=== PATIENT | male | born 1965 | race Caucasian/White ===

== ENCOUNTER 2018-10-26 12:58 | Inpatient (IN) ==
[2018-10-26] MEDS ORDERED: ASPIRIN PO ONE (13:22)
[2018-10-26 13:34] LABS: BASO# 0.02 X1000 (0.0-0.2); BASO% 0.5 % (0.0-0.8); EOS# 0.22 X1000 (0.0-0.7); EOS% 5.1 % (0.0-10.0); HEMATOCRIT 40.6 % (42.0-52.0); HEMOGLOBIN 14.8 g/dL (14.0-18.0); LYMPH# 1.51 X1000 (1.2-3.4); LYMPH% 34.8 % (20.5-51.1); MCH 32.8 PG (27-31); MCHC 36.5 g/dL (33-37); MONO# 0.66 X1000 (0.11-0.59); MONO% 15.2 % (1.7-9.3); MPV 9.4 FL (7.4-10.4); NEUT# 1.93 X1000 (1.4-6.5); NEUT% 44.4 % (42.2-75.2); PLT 247 X1000 (130-400); RBC 4.51 XMIL (4.7-6.1); RDW 12.6 % (11.5-14.5); WBC 4.34 X1000 (4.8-10.8)
[2018-10-26 13:40] LABS: INR 0.99; PROTIME 13.2 Seconds (11.0-16.0)
--- NOTE | 2018-10-26 13:40 | Diag Imaging Result Doc PS360 ---
EXAM: CHEST-2 VIEWS 10/26/2018 HISTORY: SOB TECHNIQUE: PA and lateral chest COMMENT: There is a large pneumothorax on the right occupying more than 50% of the volume of the right hemithorax with displacement of the mediastinum to the left. IMPRESSION: Right-sided tension pneumothorax. The findings were discussed with Hayder Crooks MD at 10/26/2018 1:37 PM. Electronically signed by Randell Ashby 10/26/2018 1:37 PM
[2018-10-26 13:41] LABS: PTT 27.1 Seconds (22.3-41.8)
[2018-10-26 13:51] LABS: AGAP 14; BUN 15 mg/dL (8-22); CHLORIDE 100 mmol/L (98-107); GLUCOSE 134 mg/dL (70-104); POTASSIUM 3.2 mmol/L (3.5-5.1); SODIUM 138 mmol/L (136-145); TCO2 24 mmol/L (25-35)
[2018-10-26 13:52] LABS: ALB/GLOB RATIO 1.8; ALBUMIN 4.4 g/dL (3.5-5.0); ALKALINE PHOSPHATASE 69 U/L (32-122); CALCIUM 9.1 mg/dL (8.8-10.2); CK PROFILE 124 U/L (24-204); COSMO 278; CREATININE 0.6 mg/dL (0.7-1.2); ESTIMATED GFR > 60; GOT 13 U/L (10-34); GPT 12 U/L (10-44); TOTAL PROTEIN 6.9 g/dL (6.3-8.3)
[2018-10-26] MEDS ORDERED: VERSED IV ONE (14:20)
--- NOTE | 2018-10-26 14:42 | EKG Report ---
Test Performed on : 10/26/2018 1:04:59 PM Test Reason : SOB Blood Pressure : / mmHG Vent. Rate : 095 BPM Atrial Rate : 095 BPM P-R Int : 124 ms QRS Dur : 096 ms QT Int : 352 ms P-R-T Axes : 081 083 100 degrees QTc Int : 442 ms Normal sinus rhythm. Right atrial enlargement Borderline ECG No previous ECGs available Unconfirmed Result
[2018-10-26] MEDS ORDERED: KLOR-CON PO ONE (16:26)
--- NOTE | 2018-10-26 16:51 | Diag Imaging Result Doc PS360 ---
EXAM: CHEST-PORTABLE INDICATION: chest tube TECHNIQUE: One view COMPARISON: 10/26/2018 FINDINGS: There has been interval placement of a right thoracostomy tube. The tip projects over the right upper lung zone medially. Since placement, there has been reexpansion of the right lung. No residual pneumothorax can be identified by plain radiograph. There is mild atelectasis at the right lung base. No new consolidation is identified. Cardiac silhouette is stable. IMPRESSION: Interval placement of right chest tube with reexpansion of the right lung and no visible residual pneumothorax by plain radiograph. Electronically signed by Ventura Blankenship 10/26/2018 4:48 PM
[2018-10-26] MEDS: ZOFRAN IV PRN (20:14)
[2018-10-26] MEDS: MORPHINE IV PRN (20:14)
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
[2018-10-26] MEDS: TYLENOL PO PRN (22:02)
[2018-10-26] MEDS ORDERED: PROTONIX IV ONE (22:25)
[2018-10-26] MEDS ORDERED: SODIUM CHLORIDE 0.9% INJ ONE (22:25)
[2018-10-26] MEDS ORDERED: G.I. COCKTAIL PO ONE (22:25)
[2018-10-26] MEDS ORDERED: XANAX PO ONE (22:27)
--- NOTE | 2018-10-27 03:38 | GENERAL SURGERY CONSULTATION ---
DATE: 10/26/2018 CHIEF COMPLAINT: Shortness of breath, right chest pain. REQUESTING PHYSICIAN: The hospitalist, emergency department physician. HISTORY OF PRESENT ILLNESS: This is a 53-year-old gentleman who has had a history of recurrent pneumothoraces, bilateral, that will require chest tubes. He has known COPD with emphysematous changes and ongoing tobacco use. This afternoon, he developed acute shortness of breath, chest pain which he recognized prior attacks, and came to the emergency department, where, he was found to have impending tension pneumothorax on the right. Chest tube was placed by Dr. Crooks in the emergency department. He is admitted to the hospitalist service. I have been consulted for chest tube management. He is hemodynamically stable currently. MEDICAL HISTORY: COPD, tobacco abuse. Otherwise, has not really had much in the way of health management. SURGICAL HISTORY: Multiple chest tubes bilaterally. No other thoracic procedures. SOCIAL HISTORY: He does smoke, currently about a half pack a day, but previously heavier than this. No current alcohol use that he admits. Has worked various jobs. FAMILY HISTORY: Reviewed, noncontributory. REVIEW OF SYSTEMS: Ten-point system review was performed and negative other than what is mentioned in HPI. PHYSICAL EXAMINATION: General: He is a thin-appearing gentleman, no acute distress. He is alert. Vital signs: He is afebrile. Pulse in the 80s, blood pressure 122/82, oxygen saturation high 90s on nasal cannula. HEENT: No scleral icterus. Neck: No cervical masses. Trachea is midline. Cardiovascular: Normal rate. Pulmonary: No increased work of breathing. He has a right-sided chest tube set to -20 suction, and does have a forced air leak when taking off of suction. Otherwise, no subcutaneous air. Abdomen: Soft, nontender. Integumentary: Skin is warm and dry. Psychiatric: Appropriate affect. Neurologic: No gross deficits. Peripheral vascular: He does have no lower extremity edema. Lymphatic: No cervical or axillary inguinal adenopathy. LABORATORY DATA: White count 4, hematocrit 40, platelets 247,000. INR 0.99. Creatinine 0.6. LFTs are normal. Films are negative. I reviewed both his pre- and post chest tube placement chest x-rays. ASSESSMENT AND PLAN: A 53-year-old gentleman with a recurrent spontaneous pneumothorax on the right. These have spanned several years. 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 We will continue his chest tube to -20 suction for now. Plan to water-seal tomorrow if his x-ray looks okay. If his air leak resolves, we will discuss removing the tube versus blebectomy and pleurodesis. I will monitor going forward. He is in no acute respiratory distress at this juncture. cc: Melba Rebolledo MD
[2018-10-27 06:17] LABS: HEMOGLOBIN 14.9 g/dL (14.0-18.0); RBC 4.59 XMIL (4.7-6.1); WBC 5.65 X1000 (4.8-10.8)
[2018-10-27 06:18] LABS: BASO# 0.01 X1000 (0.0-0.2); BASO% 0.2 % (0.0-0.8); EOS# 0.26 X1000 (0.0-0.7); EOS% 4.6 % (0.0-10.0); HEMATOCRIT 42.1 % (42.0-52.0); LYMPH# 1.52 X1000 (1.2-3.4); LYMPH% 26.9 % (20.5-51.1); MCH 32.5 PG (27-31); MCHC 35.4 g/dL (33-37); MCV 91.7 FL (81-99); MONO# 0.99 X1000 (0.11-0.59); MONO% 17.5 % (1.7-9.3); MPV 9.5 FL (7.4-10.4); NEUT# 2.87 X1000 (1.4-6.5); NEUT% 50.8 % (42.2-75.2); PLT 244 X1000 (130-400)
[2018-10-27 06:47] LABS: AGAP 10; ALB/GLOB RATIO 1.6; ALKALINE PHOSPHATASE 67 U/L (32-122); BUN 14 mg/dL (8-22); CALCIUM 8.8 mg/dL (8.8-10.2); CHLORIDE 103 mmol/L (98-107); COSMO 278; CREATININE 0.6 mg/dL (0.7-1.2); ESTIMATED GFR > 60; GLUCOSE 98 mg/dL (70-104); GOT 12 U/L (10-34); GPT 10 U/L (10-44); POTASSIUM 3.9 mmol/L (3.5-5.1); SODIUM 139 mmol/L (136-145); TCO2 26 mmol/L (25-35); TOTAL BILIRUBIN 0.77 mg/dL (0.20-1.00); TOTAL PROTEIN 6.5 g/dL (6.3-8.3)
--- NOTE | 2018-10-27 07:43 | Diag Imaging Result Doc PS360 ---
EXAM: CHEST-PORTABLE INDICATION: chest tube placement TECHNIQUE: One view COMPARISON: 10/26/2018 FINDINGS: The right chest tube is in stable position. A very small residual pneumothorax can be identified on this study at the periphery of the right lung base and at the right lung apex. There is platelike atelectasis at the right lung base that has worsened. No new consolidation is identified, otherwise. Cardiac silhouette is stable. IMPRESSION: Small residual right-sided pneumothorax and development of mild right basilar atelectasis. Electronically signed by Ventura Blankenship 10/27/2018 7:40 AM
[2018-10-27] MEDS: MORPHINE IV PRN ×2 (10:52→20:05)
--- NOTE | 2018-10-27 14:49 | PROGRESS NOTE ---
DATE: 10/27/2018 SUBJECTIVE: The patient is resting comfortably in bed. He has no complaints at this time. He has a chest tube in place in the right chest wall. OBJECTIVE: Vital Signs: Temperature 97 degrees, blood pressure 107/72, heart rate 81, respirations 22, O2 saturation 95% on room air. General: This is an elderly male, lying in bed, in no acute distress. Heart: S1, S2 normal. Regular rate and rhythm. Lungs: Equal air entry bilaterally. No wheezing. No rales. No rhonchi. Abdomen: Positive bowel sounds. Soft, nontender, nondistended. Extremities: No edema, no cyanosis. Neurologic: The patient is alert and oriented x4. LABORATORY DATA: Reviewed. IMAGING: Chest x-ray shows a small right-sided pneumothorax with atelectasis. ASSESSMENT AND PLAN: 1. Recurrent spontaneous right pneumothorax. Continue with chest tube management as directed by the general surgeon. 2. Gastrointestinal prophylaxis. Will start the patient on Protonix. 3. Deep vein thrombosis prophylaxis. Will start the patient on heparin. cc: Spring Balderas MD
--- NOTE | 2018-10-27 16:02 | GENERAL SURGERY PROGRESS NOTE ---
DATE: 10/27/2018 SUBJECTIVE: Doing well, no shortness of breath. Hemodynamically stable. Chest x-ray shows good expansion of his right lung. On exam he is alert, in no acute distress. He has no air leak. His chest is -20. Reviewed his labs and chest x-ray. ASSESSMENT AND PLAN: 53-year-old gentleman with right spontaneous pneumothorax with water seal chest tube. Dr. Ryan is care information associate this weekend. He will manage the tube going further, but I suspect we can remove it. If he develops re-leak or the lung does not expand, he may need a pleurodesis and lobectomy. cc: Melba Rebolledo MD
[2018-10-27] MEDS: HEPARIN SUBQ SCH (20:04)
[2018-10-27] MEDS: TYLENOL PO PRN (20:13)
[2018-10-28] MEDS: PROTONIX PO SCH (06:00)
[2018-10-28] MEDS: HEPARIN SUBQ SCH ×4 (06:00→20:55)
[2018-10-28] MEDS: MORPHINE IV PRN ×3 (06:04→18:36)
--- NOTE | 2018-10-28 07:28 | Diag Imaging Result Doc PS360 ---
EXAM: CHEST-PORTABLE 10/28/2018 HISTORY: chest tube placement TECHNIQUE: AP portable at 0552 COMMENT: There is worsening of the right pneumothorax despite the presence of the chest tube on the right. This measures over 2 cm in the apex compared to 11 mm at the time of the previous study of 10/27/2018. There is slightly increased opacification in the right lower lobe which is probably related to worsened atelectasis. There is also some platelike atelectasis in the left lower lobe. IMPRESSION: Worsening right-sided pneumothorax and basilar atelectasis. Electronically signed by Randell Ashby 10/28/2018 7:26 AM
[2018-10-28 08:26] LABS: AGAP 11; BUN 15 mg/dL (8-22); CALCIUM 8.4 mg/dL (8.8-10.2); CHLORIDE 99 mmol/L (98-107); COSMO 273; CREATININE 0.5 mg/dL (0.7-1.2); ESTIMATED GFR > 60; GLUCOSE 96 mg/dL (70-104); POTASSIUM 3.5 mmol/L (3.5-5.1); SODIUM 136 mmol/L (136-145); TCO2 26 mmol/L (25-35)
--- NOTE | 2018-10-28 13:30 | GENERAL SURGERY PROGRESS NOTE ---
DATE: 10/28/2018 SUBJECTIVE: The patient reports a little chest discomfort on the right. OBJECTIVE: Vital Signs: He is afebrile. Vital signs are stable. General: He is awake, alert, oriented, oriented x3. No acute distress. Respiratory: He has clear bilateral breath sounds. No increased work of breathing. The chest tube had at 1st glance a very large continuous air leak. However, further inspection revealed the drain tube was not connected well to the chest tube. I reconnected the tubes and put new tape on it and the amount of air leak significantly decreased. IMAGING: Chest x-ray this morning shows slightly worsened right apical pneumothorax. ASSESSMENT/PLAN: A 53-year-old male with recurrent right spontaneous pneumothorax. He has known emphysema and apical blebs. He apparently has a small air leak. However, the evaluation was complicated by a dysfunctional connection of the chest drain system. We will continue the chest tube to suction overnight and repeat a chest x-ray and physical exam tomorrow. I think it ill improve. cc: Efrain Ryan MD
--- NOTE | 2018-10-28 17:11 | PROGRESS NOTE ---
DATE: 10/28/2018 SUBJECTIVE: The patient is resting comfortably in bed. He has no complaints. OBJECTIVE: Vital Signs: Temperature 97.9 degrees, blood pressure 115/75, heart rate 88, respirations 18, O2 saturation 97% on room air. General: This is a chronically ill-appearing elderly male, lying in bed in no acute distress. Heart: S1, S2 normal. Regular rate and rhythm. Lungs: Equal air entry bilaterally. No wheezing. No rales. Abdomen: Positive bowel sounds. Soft, nontender, nondistended. Extremities: No edema, no cyanosis. Neurologic: The patient is alert and oriented x3. LABS: Reviewed. X-RAYS: Chest x-ray shows worsened right-sided pneumothorax or basilar atelectasis. ASSESSMENT AND PLAN: 1. Recurrent spontaneous right pneumothorax. Management as per the general surgeon. 2. Gastrointestinal prophylaxis. Continue on Protonix. 3. Deep vein thrombosis prophylaxis. Continue on heparin. cc: Spring Balderas MD MTDD
[2018-10-29] MEDS: MORPHINE IV PRN ×4 (00:54→17:36)
[2018-10-29] MEDS: HEPARIN SUBQ SCH ×3 (06:09→20:42)
[2018-10-29] MEDS: PROTONIX PO SCH (06:09)
--- NOTE | 2018-10-29 07:09 | Diag Imaging Result Doc PS360 ---
EXAM: CHEST-PORTABLE 10/29/2018 HISTORY: chest tube placement TECHNIQUE: AP portable at 0541 COMMENT: There is a right chest tube. Compared to the previous examination of 10/28/2018 there is only a tiny apical pneumothorax measuring 8 mm in thickness. There is platelike atelectasis in the right base and there is a small amount of right pleural fluid. IMPRESSION: Improved right pneumothorax. Right lower lobe subsegmental atelectasis and small pleural effusion. Electronically signed by Randell Ashby 10/29/2018 7:06 AM
--- NOTE | 2018-10-29 10:46 | PROGRESS NOTE ---
DATE: 10/29/2018 SUBJECTIVE: The patient is resting comfortably in bed. He has no complaints. OBJECTIVE: Vital Signs: Temperature 97.9 degrees, blood pressure 112/68, heart rate 73, respirations 15, O2 saturation 95% on room air. General: This is a chronically ill-appearing male, sitting up in bed in no acute distress. Heart: S1, S2. Normal. Regular rate and rhythm. Lungs: Clear to auscultation bilaterally. Abdomen: Positive bowel sounds. Soft, nontender, nondistended. Extremities: No edema, no cyanosis. Neurologic: The patient is alert and oriented x3. LABORATORY DATA: Reviewed. ASSESSMENT AND PLAN: 1. Recurrent spontaneous right pneumothorax. Management as per the general surgeon. 2. Gastrointestinal prophylaxis. Continue on Protonix. 3. Deep vein thrombosis prophylaxis. Continue on heparin. cc: Spring Balderas MD
--- NOTE | 2018-10-29 14:02 | GENERAL SURGERY PROGRESS NOTE ---
DATE: 10/29/2018 SUBJECTIVE: The patient has had no acute events or changes overnight. He denies chest pain, shortness of breath. OBJECTIVE: Vital signs: He is afebrile. Vital signs are stable. Respiratory: Bilateral breath sounds. No increased work of breathing. Chest tube does have an air leak but not as large yesterday. IMAGING: The chest x-ray shows the smaller right pneumothorax. ASSESSMENT AND PLAN: A 53-year-old male with recurrent right spontaneous pneumothorax status post chest tube placement. The pneumothorax is better but unresolved. He still has an air leak. We will continue the chest tube to suction, and I suspect this patient would need video thoracoscopy and lobectomy with pleurodesis this week. cc: Efrain Ryan MD
[2018-10-30] MEDS: HEPARIN SUBQ SCH ×3 (05:59→22:06)
[2018-10-30] MEDS: MORPHINE IV PRN ×4 (06:03→22:11)
[2018-10-30] MEDS: PROTONIX PO SCH (06:31)
[2018-10-30 06:34] LABS: HEMATOCRIT 44.9 % (42.0-52.0); HEMOGLOBIN 15.6 g/dL (14.0-18.0); MCH 32.4 PG (27-31); MCHC 34.7 g/dL (33-37); MCV 93.2 FL (81-99); MPV 9.9 FL (7.4-10.4); RBC 4.82 XMIL (4.7-6.1); RDW 12.8 % (11.5-14.5); WBC 6.64 X1000 (4.8-10.8)
[2018-10-30 06:51] LABS: AGAP 11; BUN 15 mg/dL (8-22); CALCIUM 9.5 mg/dL (8.8-10.2); CHLORIDE 99 mmol/L (98-107); COSMO 280; CREATININE 0.6 mg/dL (0.7-1.2); ESTIMATED GFR > 60; GLUCOSE 94 mg/dL (70-104); POTASSIUM 4.3 mmol/L (3.5-5.1); SODIUM 140 mmol/L (136-145); TCO2 30 mmol/L (25-35)
--- NOTE | 2018-10-30 06:58 | Diag Imaging Result Doc PS360 ---
EXAM: CHEST-PORTABLE HISTORY: chest tube placement TECHNIQUE: Chest single view COMPARISON: 10/29/2018 FINDINGS: No change in the right sided chest tube. Tiny pneumothorax. The lungs are hyper expanded except for atelectasis in the right base. No cardiomegaly. The pulmonary vessels are small. IMPRESSION: Stable chest Electronically signed by Shayan Sr 10/30/2018 6:56 AM
--- NOTE | 2018-10-30 11:14 | PROVIDER DOCUMENTATION ---
This chart was entered by Viv Person Scribe, acting as scribe for Hayder Crooks MD. HPI-Respiratory General - General Chief Complaint: Shortness of Breath Stated Complaint: SOB Time Seen by Provider: 10/26/18 13:35 Source: patient Allergies/Adverse Reactions: Patient Allergies Allergy/AdvReac Type Severity Reaction Status Date / Time No Known Allergies Allergy Verified 12/02/11 09:34 Home Medications: Home Medication List Medication Instructions Recorded Confirmed Last Taken Type Azithromycin [Zithromax] 500 mg PO DAILY #0 tablet 12/02/11 Unknown Rx No Home Medications 12/02/11 12/02/11 Unknown History - History of Present Illness-Resp Nature of Presenting Problem: Patient is a 53 year old male who presents with shortness of breath, cough and right side rib pain. States symptoms started this morning. Denies fever. History of 3 spontaneous pneumothorax. Quality of Pain: reports: tightness Severity in ED: reports: moderate Onset/Duration: reports: this morning Timing: reports: still present Cough Quality/Degree: reports: moderate, productive cough Associated Symptoms: reports: cough, shortness of breath, other (right side rib pain) Similar Symptoms Previously?: No Recently seen or treated by another doctor?: No Review of Systems - Adult - REVIEW OF SYSTEMS - ADULT Constitutional: reports: no symptoms reported. denies: chills, fever, fatique Eyes: reports: no symptoms reported Ears, Nose, Mouth & Throat: reports: no symptoms reported Cardiovascular: reports: no symptoms reported Respiratory: reports: see HPI, cough, shortness of breath. denies: wheezing Gastrointestinal: reports: no symptoms reported Genitourinary: reports: no symptoms reported Musculoskeletal: reports: see HPI, other (right side rib pain). denies: back pain, neck pain Integumentary: reports: no symptoms reported Neurological: reports: no symptoms reported Psychiatric: reports: no symptoms reported Endocrine: reports: no symptoms reported Hematologic/Lymphatic: reports: no symptoms reported Allergic/Immunologic: reports: no symptoms reported All Other Systems: Reviewed and Negative Past History - Adult - PAST MEDICAL HISTORY-ADULT Review of Records: reports: Old Records Reviewed, Social history reviewed & non- contributory. Major Childhood Illnesses: reports: denies history Cardiovascular: reports: denies history Respiratory: reports: denies history Gastrointestinal: reports: denies history Obstetrical/Gynecological: reports: denies history Genitourinary: reports: denies history Musculoskeletal: reports: denies history Neurological: reports: denies history Psychiatric: reports: denies history Endocrine/Immune: reports: denies history Other Conditions: reports: denies history - PRIOR SURGERIES/PROCEDURES Surgical/Procedure History: reports: reviewed, not pertinent - IMMUNIZATION STATUS Childhood Immunizations: See Nurse Assessment Flu Vaccine: See Nurse Assessment - FAMILY HISTORY Family History: reviewed, not pertinent - SOCIAL HISTORY Smoking: cigarettes, greater than 1 pack/day Provider spent 3-5 mins advising pt. on dangers of tobacco.: Discussed manners to quit use, and f/u contacts for add'l counseling. Substance Use: denies Living Situation: family Physical Exam-General - PHYSICAL EXAM-ADULT Initial Vital Signs Reviewed: Yes - CONSTITUTIONAL General Appearance: alert, mild distress, thin. negative: lethargic - EYES Eyes: PERRL/EOMI, pink conjunctivae. negative: scleral icterus - HEAD, EARS, NOSE, MOUTH & THROAT HENMT: normocephalic/atraumatic, moist mucous membranes. negative: angioedema - RESPIRATORY Respiratory: chest non-tender, decreased breath sounds (right). negative: respiratory distress, crackles, rales - CARDIOVASCULAR Cardiovascular: normal peripheral pulses, regular rate, rhythm. negative: tachycardia - GASTROINTESTINAL (ABDOMEN) Abdominal Exam: normal bowel sounds, non tender, soft. negative: guarding, rebound - MUSCULOSKELETAL Extremity: normal inspection. negative: deformity, erythema - SKIN Integumentary: normal color, normal turgor, warm/dry. negative: cyanosis, ecchymosis, jaundice - NEUROLOGIC Neurologic: grossly normal. negative: aphasia, facial droop - PSYCHIATRIC Psych/Mental Status: normal mood/affect, oriented x 3. negative: anxious Progress - PLAN OF CARE/RESULTS Progress/Plan/Lab Results: Vital Signs - 8 hr 10/26/18 13:04 Temperature 97.5 F L Pulse Rate 97 H Respiratory Rate 20 Blood Pressure 111/78 O2 Sat by Pulse Oximetry 95 Laboratory Results - last 24 hr 10/26/18 10/26/18 10/26/18 13:15 13:15 13:15 WBC 4.34 L RBC 4.51 L Hgb 14.8 Hct 40.6 L MCV 90.0 MCH 32.8 H MCHC 36.5 RDW Std Deviation 12.6 Plt Count 247 MPV 9.4 Immature Gran % (Auto) 0.0 Neut % (Auto) 44.4 Lymph % (Auto) 34.8 Anson % (Auto) 15.2 H Eos % (Auto) 5.1 Baso % (Auto) 0.5 Immature Gran # (Auto) 0.00 Neut # (Auto) 1.93 Lymph # (Auto) 1.51 Anson # (Auto) 0.66 H Eos # (Auto) 0.22 Baso # (Auto) 0.02 PT INR PTT (Actin FS) Sodium 138 Potassium 3.2 L Chloride 100 Carbon Dioxide 24 L Anion Gap 14 BUN 15 Creatinine 0.6 L Estimated GFR/1.73 m2 > 60 BUN/Creatinine Ratio 25 Glucose 134 H Calculated Osmolality 278 Calcium 9.1 Total Bilirubin 0.80 AST 13 ALT 12 Alkaline Phosphatase 69 Creatine Kinase 124 Troponin T Dwv-M-Gicrbtvujrs Pept 30 Total Protein 6.9 Albumin 4.4 Globulin 2.5 Albumin/Globulin Ratio 1.8 10/26/18 10/26/18 13:15 13:15 WBC RBC Hgb Hct MCV MCH MCHC RDW Std Deviation Plt Count MPV Immature Gran % (Auto) Neut % (Auto) Lymph % (Auto) Anson % (Auto) Eos % (Auto) Baso % (Auto) Immature Gran # (Auto) Neut # (Auto) Lymph # (Auto) Anson # (Auto) Eos # (Auto) Baso # (Auto) PT 13.2 INR 0.99 PTT (Actin FS) 27.1 Sodium Potassium Chloride Carbon Dioxide Anion Gap BUN Creatinine Estimated GFR/1.73 m2 BUN/Creatinine Ratio Glucose Calculated Osmolality Calcium Total Bilirubin AST ALT Alkaline Phosphatase Creatine Kinase Troponin T < 0.010 Taw-R-Yhmwabvzvqm Pept Total Protein Albumin Globulin Albumin/Globulin Ratio Orders Category Date Time Status Cardiac Monitoring DIRECTED Care 10/26/18 13:22 Active Oxygen Therapy- ED Nursing DIRECTED Care 10/26/18 13:22 Active Saline Loc NOW Care 10/26/18 13:22 Active CHEST-2 VIEWS [RAD] Stat Exams 10/26/18 13:22 Completed CBC WITH ELECTRONIC DIFF [HEME] Stat Lab 10/26/18 13:15 Completed CK PROFILE [SP CHEM] Stat Lab 10/26/18 13:15 Completed COMPREHENSIVE METABOLIC PANEL [CHEM] Stat Lab 10/26/18 13:15 Completed PRO B-NATRIURETIC PEPTIDE Stat Lab 10/26/18 13:15 Completed PROTIME WITH INR [COAG] Stat Lab 10/26/18 13:15 Completed PTT [COAG] Stat Lab 10/26/18 13:15 Completed TROPONIN T Stat Lab 10/26/18 13:15 Completed Aspirin Med 10/26/18 13:22 Discontinued 325 mg PO NOW ONE Midazolam [Versed] Med 10/26/18 14:20 Discontinued 5 mg IV NOW ONE CP/SOB/Palp >45 yrs of Age Stat Oth 10/26/18 13:22 Ordered EKG [EKG] Stat Ther 10/26/18 13:04 Draft Result Diagrams: 10/26/18 13:15 10/26/18 13:15 - EKG 1 Time of EKG reading by physician:: 13:04 EKG Read and Signed by:: Hayder Crooks EKG Interpretation (*Must complete 3 of following elements*): Abnormal Rate: 95 Rhythm: normal sinus rhythm Gould: normal NC Interval: normal Comments: right atrial enlargement - XRAY 1 XRAY Study: Chest Impression: See EMR Report ( EXAM: CHEST-2 VIEWS 10/26/2018 HISTORY: SOB TECHNIQUE: PA and lateral chest COMMENT: There is a large pneumothorax on the right occupying more than 50% of the volume of the right hemithorax with displacement of the mediastinum to the left. IMPRESSION: Right-sided tension pneumothorax. The findings were discussed with Hayder Crooks MD at 10/26/2018 1:37 PM. Electronically signed by Randell Ashby 10/26/2018 1:37 PM 10/26/18 2177 Interpreting Physician: Randell Ashby MD Dictated Date/Time: 10/26/18 1337 cc: Hayder Crooks MD; None,PCP) - CONSULTS/PCP/HOSPITALIST Notification #1 *Consult/PCP/Hospitalist*: RADHA Griffin for Hospitalist Time Discussed: 14:46 (Dr. Balderas accepted admit ) Reason/Comments: Dr. Crooks consulted with Gaby about patient. Consult Disposition: Will see in ED, Admit Procedures - CHEST TUBE Right Upper Lateral Chest Consent Form Signed?: Yes Time-Out Verification Completed?: Yes Size of Indonesian Tube (cm): 24 Site Prepped: Betadine Anesthetic: 1%, Lidocaine/Xylocaine Volume of Anesthesia (ml's): 5 Harp of Air Zavala: Yes Number of Attempts: 1 Connected to Wall Suction?: Yes Tube Sutured to Skin: Yes Placement Verified by XRAY?: Yes Departure - Departure Date of Disposition Decision: 10/26/18 Time of Disposition Decision: 14:00 DIAGNOSIS: Tension pneumothorax, spontaneous Disposition: ADMITTED INPATIENT 09 Certified Medical Emergency: Emergent Condition: Good Referrals and Follow-Ups: None,PCP [Primary Care Provider] - - Critical Care Note This patient required my direct & personal management of CC.: No Attestation - Physician/ NANCY Attestation Patient care was provided by Advanced Practice Provider:: No The physician spent face to face time with patient:: Yes Advanced Practice Provider documentation review:: Supervising physician onsite and consulted in the evaluation and care of this patient. The physician did have a face to face encounter with the patient. This chart was documented by the indicated scribe, (Viv Person Scribe) and accurately reflects the services I performed and decisions made by me, Hayder Crooks MD, as attested by the provider's signature.
--- NOTE | 2018-10-30 17:22 | PROGRESS NOTE ---
DATE: 10/30/2018 SUBJECTIVE: The patient is resting comfortably in bed. No acute events noted overnight. OBJECTIVE: Vital Signs: Temperature 97.7 degrees, blood pressure 111/72, heart rate 86, respirations 16, O2 saturation is 93% on room air. General: This is a chronically ill-appearing elderly male, sitting up in bed in no acute distress. Heart: S1, S2 normal. Regular rate and rhythm. Lungs: Equal air entry bilaterally. No wheezing. No rales. No rhonchi. Abdomen: Positive bowel sounds. Soft, nontender, nondistended. Extremities: No edema, no cyanosis. No calf tenderness. Neurologic: The patient is alert and oriented x4. No focal neurologic deficits noted. ASSESSMENT AND PLAN: 1. Recurrent spontaneous right pneumothorax. Continue with chest tube management as directed by the general surgeon. 2. Gastrointestinal prophylaxis. Continue on Protonix. 3. Deep vein thrombosis prophylaxis. Continue on heparin. cc: Spring aBlderas MD MTDD
--- NOTE | 2018-10-30 19:29 | GENERAL SURGERY PROGRESS NOTE ---
DATE: 10/30/2018 SUBJECTIVE: Feels well. No shortness of breath. Chest tube is irritating him some. No fevers, no tachycardia. He is on room air. OBJECTIVE: General: He is alert. There is no subcutaneous air over his right chest. The chest tube is in place. There was an initial air leak but when I checked the connection between the tube and the Pleur-evac, it was not completely connected, which I think is causing the air leak. After this, it resolved. DIAGNOSTIC DATA: White count 6, hematocrit 44, creatinine 0.6. Chest x-ray shows expansion of wall with no subcutaneous air. ASSESSMENT AND PLAN: This is a 53-year-old gentleman with spontaneous right pneumothorax. I am going to obtain a CT scan of the chest to better define the lung. If this looks okay, then we will consider removal of chest tube tomorrow. cc: Melba Rebolledo MD
--- NOTE | 2018-10-30 21:46 | Diag Imaging Result Doc PS360 ---
CT THORAX W/O CONTRAST - 10/30/2018 INDICATION: PTX COMPARISON: Chest x-ray from earlier today FINDINGS: There is an anterior right chest tube in good position. There is a small right hydropneumothorax. The pneumothorax is about 20%, and the perfusion portion is about 10%. There is some consolidation of the right lower lobe. There is mild paraseptal COPD. There is a 9.8 mm pulmonary nodule in the right middle lobe. The left lung is clear. There is a small nonobstructing stone in the upper pole of the left kidney measuring about 4 mm. Otherwise upper abdominal images appear normal. Bones are intact. IMPRESSION: 1. Small right hydropneumothorax. Right chest tube is in good position. 2. Focal consolidation of the posterior inferior right lower lobe. 3. Pulmonary nodule in the right middle lobe. 4. COPD. 5. Nonobstructing left renal stone. This exam was performed using automated exposure control, adjustment of mA or kV according to patient size, and/or use of iterative reconstruction technique Electronically signed by Rod Be 10/30/2018 9:43 PM
[2018-10-31] MEDS: HEPARIN SUBQ SCH ×3 (05:54→20:20)
[2018-10-31] MEDS: PROTONIX PO SCH ×2 (05:55→06:08)
[2018-10-31] MEDS: MORPHINE IV PRN ×4 (06:03→22:04)
[2018-10-31 06:33] LABS: WBC 6.96 X1000 (4.8-10.8)
[2018-10-31 06:34] LABS: HEMATOCRIT 44.5 % (42.0-52.0); HEMOGLOBIN 15.5 g/dL (14.0-18.0); MCH 32.6 PG (27-31); MCHC 34.8 g/dL (33-37); MCV 93.5 FL (81-99); MPV 9.5 FL (7.4-10.4); RBC 4.76 XMIL (4.7-6.1); RDW 12.8 % (11.5-14.5)
[2018-10-31 06:49] LABS: AGAP 10; BUN 18 mg/dL (8-22); CALCIUM 9.6 mg/dL (8.8-10.2); CHLORIDE 96 mmol/L (98-107); COSMO 274; CREATININE 0.8 mg/dL (0.7-1.2); ESTIMATED GFR > 60; GLUCOSE 102 mg/dL (70-104); POTASSIUM 4.4 mmol/L (3.5-5.1); SODIUM 136 mmol/L (136-145); TCO2 30 mmol/L (25-35)
--- NOTE | 2018-10-31 07:30 | Diag Imaging Result Doc PS360 ---
EXAM: CHEST-PORTABLE INDICATION: chest tube placement TECHNIQUE: One view COMPARISON: 10/30/2018 FINDINGS: Right-sided chest tube is in stable position. There is probably still a very there is stable atelectasis at the right lung base. Small right apical pneumothorax that is stable. No new consolidation is identified. Cardiac silhouette is stable. IMPRESSION: Stable chest. Electronically signed by Ventura Blankenship 10/31/2018 7:28 AM
--- NOTE | 2018-10-31 09:32 | PROGRESS NOTE ---
DATE: 10/31/2018 SUBJECTIVE: Mr. Elder is sleeping, resting calmly. He says he does feel better. Chest tube in the right chest. OBJECTIVE: Temperature 97.9 degrees, pulse 76, respirations 18, blood pressure 115/64. Pupils are equal and round. Lungs are clear in all lung hinkle. Cardiovascular Examination: Regular rhythm and rate without murmur or S3. Abdomen is soft. Skin is warm and dry. Urine output is [address], small right hydropneumothorax, right chest tube in good position, focal consolidation of posterior inferior right lower lobe, pulmonary nodule in the right middle lobe, COPD, nonobstructing left renal stone. He had a spontaneous right pneumothorax and chest tube may come out soon. REVIEW OF ORDERS: I do not see any change. He is on heparin 5000 units subcutaneous q.8. cc: Caesar Rosas MD
[2018-10-31] MEDS: TYLENOL PO PRN (20:20)
[2018-10-31] MEDS: ZOFRAN IV PRN (20:23)
--- NOTE | 2018-10-31 20:30 | GENERAL SURGERY PROGRESS NOTE ---
DATE: 10/31/2018 SUBJECTIVE: Doing okay. No shortness of breath. No pain. No fevers. No tachycardia. He is on room air. OBJECTIVE: He has a chest tube in place. It has been placed back to -30 suction. There is no air leak with forced expiration. Labs were reviewed. I reviewed his noncontrast CT of the chest from yesterday evening. It does show slight residual pneumothorax, more anteriorly located. He has emphysematous changes. There is a right middle pulmonary nodule. There is nonspecific and a posterior-inferior right lower lobe consolidation. ASSESSMENT AND PLAN: This is a 53-year-old gentleman with recurrent spontaneous pneumothoraces over the last many years. His air leak seems to have resolved. He did have incomplete expansion of the lung noted on CT scan, but not clearly visible on chest x-ray. Placed him back to -30 suction. If the lung remains elevated, we will consider removal in the next 24 hours. I do not think he would tolerate, given the emphysematous changes of his lungs, a thoracic procedure well and would be high risk, but he may ultimately require a possible lobectomy and pleurodesis. I did discuss this with the patient. Will follow along. cc: Melba Rebolledo MD
[2018-11-01] MEDS: HEPARIN SUBQ SCH ×4 (05:34→22:04)
[2018-11-01] MEDS: MORPHINE IV PRN ×4 (06:47→22:04)
[2018-11-01] MEDS: PROTONIX PO SCH (06:47)
[2018-11-01] MEDS: ZOFRAN IV PRN (06:47)
--- NOTE | 2018-11-01 07:55 | Diag Imaging Result Doc PS360 ---
CHEST-2 VIEWS - 11/01/2018 INDICATION: ptx COMPARISON: 10/31/2018 FINDINGS: Stable right chest tube in good position. There has been increase in size of the right pneumothorax, both at the apex and at the lung base. This probably measures about 15-20% now. There has been improvement in the atelectasis at the right lung base. No new infiltrates. IMPRESSION: Mixed changes from prior. Slight increase in size of the right pneumothorax. Electronically signed by Rod Be 11/01/2018 7:52 AM
--- NOTE | 2018-11-01 12:03 | PROGRESS NOTE ---
DATE: 11/01/2018 SUBJECTIVE: Mr. Elder is feeling better, less pain. Chest tube is still in place and I think it is still on suction. CT scan did not show complete re-expansion of the lung. Chest x-ray looked good. OBJECTIVE: Temperature 97.9 degrees, pulse 66, respirations 18, blood pressure 120/77. HEENT: Pupils are equal and round. No distended neck veins. Lungs are clear in all lung hinkle. Cardiovascular Examination: Regular rhythm and rate without murmur or S3. Abdomen is soft. Skin is warm and dry. Chest x-ray from this morning, no changes from prior, slight increased size of the right pneumothorax on chest x-ray. ASSESSMENT AND PLAN: 1. A 53-year-old gentleman with recurrent spontaneous pneumothorax. I think his last one, his father said, was 20 years ago though. I think he has had a total of four episodes of spontaneous pneumothorax. It looks like the chest x-ray may show a little increase. CT scan did not show a complete expansion so I do not know if we will be able to get the chest tube out today. 2. Gastrointestinal prophylaxis in place with Protonix. 3. Deep venous thrombosis in place as well. 4. I discussed with his daughter, Viviane Dumas, and said at this point that we were not planning on any surgery or pleurodesis but we would see how his progress and in which we were heading, talk to surgery. cc: Caesar Rosas MD MTDD
--- NOTE | 2018-11-01 14:45 | GENERAL SURGERY PROGRESS NOTE ---
DATE: 11/01/2018 SUBJECTIVE: Feels okay. No shortness of breath. No fevers. No tachycardia. OBJECTIVE: Vitals: Oxygen saturation 95% on room air. General: He is alert. Pulmonary: His chest tube has an intermittent air leak. It is to wall suction. Minimal output. X-rays performed PA and lateral show residual pneumothorax or subcu air. ASSESSMENT AND PLAN: A 53-year-old gentleman with spontaneous pneumothorax. He has had a persistent air leak and residual pneumothorax noted despite manipulation of his suction and water- seal device. Given the findings, I have recommended video-assisted pleurodesis and possible blebectomy on Tuesday. We discussed risks of bleeding, infection, conversion to thoracotomy, persistent air leak, ongoing pneumothorax, and the anticipated recovery. He understands all this and consents. We also discussed cardiovascular and pulmonary risks associated with anesthesia. We will also plan bronchoscopy at the time as well. cc: Melba Rebolledo MD
[2018-11-02] MEDS: ZOFRAN IV PRN ×2 (04:17→20:09)
[2018-11-02] MEDS: MORPHINE IV PRN ×3 (04:17→20:09)
[2018-11-02] MEDS: PROTONIX PO SCH (06:41)
[2018-11-02] MEDS: HEPARIN SUBQ SCH ×3 (06:41→20:09)
--- NOTE | 2018-11-02 10:00 | PROGRESS NOTE ---
DATE: 11/02/2018 SUBJECTIVE: Mr. Elder was sleeping, was easy to arouse. They are planning to do surgery on the right lung. OBJECTIVE: Temperature 97.7 degrees, pulse 80, respirations 18, blood pressure 91/59.HEENT: Pupils are equal round. Lungs: Clear in all lung hinkle. Cardiovascular: Regular rhythm and rate without murmur or S3. Abdomen: Soft. Skin: Warm and dry. ASSESSMENT AND PLAN: 1. A 53-year-old gentleman with a spontaneous pneumothorax. He has had persistent air leak, residual pneumothorax noted despite manipulation of his suction and water-seal device. Given the findings, recommend video-assisted pleurodesis and possible lobectomy tomorrow. Discussed the risks of bleeding, infection and conversion to a thoracotomy. He understands. I discussed with the daughter yesterday and I think the daughter understands the plan of care as well. 2. Continue gastrointestinal prophylaxis. 3. Deep venous thrombosis prophylaxis. cc: Caesar Rosas MD
--- NOTE | 2018-11-02 14:14 | GENERAL SURGERY PROGRESS NOTE ---
DATE: 11/02/2018 SUBJECTIVE: No events overnight. No fevers. No tachycardia. Generally, he is alert. Chest tube is in place. It is to suction. Labs reviewed but nothing new today. I have also reviewed his chest x-rays over the course of the last several days. ASSESSMENT AND PLAN: A 53-year-old gentleman with spontaneous pneumothorax on the right. He has residual pneumothorax and intermittent air leak. This failed to resolve with chest tube placement. As such, I have elected to recommend that we go to the operating room tomorrow for bronchoscopy as well as thoracoscopic possible lobectomy, possible thoracotomy, mechanical pleurodesis or chest tube placement to hopefully prevent this from recurring in the future and promote resolution of this current episode. He understands and consents. Make him n.p.o. at midnight. cc: Melba Rebolledo MD
[2018-11-03] MEDS: HEPARIN SUBQ SCH ×3 (05:05→21:28)
[2018-11-03] MEDS: MORPHINE IV PRN ×4 (05:33→21:28)
[2018-11-03] MEDS: ZOFRAN IV PRN ×2 (05:34→16:39)
[2018-11-03] MEDS: PROTONIX PO SCH (06:28)
[2018-11-03] MEDS ORDERED: NORCURON ONE (09:19)
[2018-11-03] MEDS ORDERED: SODIUM CHLORIDE 0.9% 10 ML ONE (09:19)
[2018-11-03] MEDS ORDERED: XYLOCAINE-MPF 2% ONE (09:20)
[2018-11-03] MEDS ORDERED: FENTANYL ONE (10:13)
[2018-11-03] MEDS ORDERED: ROBINUL ONE ×2 (11:12→14:50)
[2018-11-03] MEDS ORDERED: DIPRIVAN 1% ONE (11:55)
[2018-11-03] MEDS ORDERED: LR 1,000 ML ONE (12:10)
[2018-11-03] MEDS ORDERED: SENSORCAINE 0.25%/EPI 1:200,000 ONE (12:10)
[2018-11-03] MEDS ORDERED: EPINEPHRINE ONE (12:18)
[2018-11-03] MEDS ORDERED: XYLOCAINE 2% VISCOUS ONE (12:18)
[2018-11-03] MEDS ORDERED: XYLOCAINE 2% ONE (12:19)
[2018-11-03] MEDS ORDERED: SODIUM CHLORIDE 0.9% 20 ML ONE (12:21)
[2018-11-03] MEDS ORDERED: KEFZOL 2 GM/D5W 2 GM/50 ML IVPB ONE (12:29)
--- NOTE | 2018-11-03 12:36 | PROGRESS NOTE ---
DATE: 11/03/2018 SUBJECTIVE: Mr. Elder is comfortable at the present time. He is to undergo surgery to try and correct his pneumothorax and the leak. He never had full distention of the lung. OBJECTIVE: Vitals: Today, temperature 98.1 degrees, pulse 80, respirations 16, blood pressure 104/69. HEENT: Pupils are equal round. Lungs: Clear in all lung hinkle. Cardiovascular: Regular rhythm and rate without murmur or S3. ASSESSMENT AND PLAN: 1. Spontaneous pneumothorax on the right. Residual pneumothorax and intermittent air leak failed to resolve with chest tube placement. Dr. Rebolledo is planning on bronchoscopy as well as thorascopic possible lobectomy, possible thoracotomy, mechanical pleurodesis or chest tube placement to hopefully prevent recurring in the future. 2. Continue gastrointestinal prophylaxis. 3. Deep venous thrombosis prophylaxis. He is on heparin 5000 units subcutaneously q.8 hours for deep venous thrombosis prophylaxis and on Protonix 40 mg daily. cc: Caesar Rosas MD
[2018-11-03] MEDS ORDERED: QUELICIN (DOSE) ONE (12:41)
[2018-11-03] MEDS ORDERED: VENTOLIN HFA ONE (13:11)
[2018-11-03 14:03] LABS: URINE SOURCE CATH
[2018-11-03 14:10] LABS: BILIRUBIN URINE NEGATIVE (NEGATIVE); BLOOD URINE NEGATIVE (NEGATIVE); COLOR YELLOW; GLUCOSE URINE NEGATIVE (NEGATIVE); KETONE URINE NEGATIVE (NEGATIVE); LEUKOCYTES URINE NEGATIVE (NEGATIVE); NITRITE URINE NEGATIVE (NEGATIVE); PROTEIN URINE NEGATIVE (NEGATIVE); SP GRAVITY URINE 1.013; TURBIDITY URINE CLEAR (CLEAR); UROBILINOGEN URINE NORMAL (NORMAL)
[2018-11-03 14:11] LABS: UR EPITHELIAL CELLS <10 /HPF (<10); URINE BACTERIA NEGATIVE /HPF; URINE RBC <10 /HPF (<10); URINE WBC <10 /HPF (<10)
[2018-11-03] MEDS ORDERED: ZOFRAN ONE (14:28)
[2018-11-03] MEDS ORDERED: TORADOL ONE (14:45)
[2018-11-03] MEDS ORDERED: NEOSTIGMINE ONE (14:51)
[2018-11-03] MEDS: DILAUDID ONE ×2 (15:32→16:58)
[2018-11-03] MEDS: PHENERGAN ONE ×2 (15:42→16:59)
--- NOTE | 2018-11-03 17:51 | Diag Imaging Result Doc PS360 ---
EXAM: CHEST-PORTABLE INDICATION: post op TECHNIQUE: One view COMPARISON: 11/01/2018 FINDINGS: Two chest tubes are in place. The tip of one projects over the medial right lung base. The tip of the other projects over the right lung apex. The pneumothorax seen on the previous study has decreased in size to gross resolution. There has been development of mild right basilar atelectasis and/or infiltrate. The left lung remains clear. Cardiac silhouette is unremarkable. IMPRESSION: 1.Dual right chest tubes in place with decrease in the right pneumothorax to gross resolution by plain radiograph. 2.Development of right basilar atelectasis and/or infiltrate. Electronically signed by Ventura Blankenship 11/03/2018 5:48 PM
--- NOTE | 2018-11-03 17:53 | OPERATIVE NOTE ---
PROCEDURE DATE: 11/03/2018 PREOPERATIVE DIAGNOSIS: Right-sided spontaneous pneumothorax with emphysematous changes and apical blebs. POSTOPERATIVE DIAGNOSES: Right-sided spontaneous pneumothorax with emphysematous changes and apical blebs. PROCEDURES PERFORMED: 1. Video-assisted thoracoscopic right blebectomy. 2. Mechanical pleurodesis. 3. Bronchoscopy. ANESTHESIA: General. ESTIMATED BLOOD LOSS: 30 mL. SPECIMENS: Right apical bleb. DRAINS: Two 32-Hebrew straight chest tubes, with the posterior tube placed posterior and apically. The anterior tube is a 90-degree tube placed over the diaphragm. OPERATIVE FINDINGS: There were apical blebs noted, very thin walled. Significant anthracotic changes noted throughout the lung, but no other emphysematous changes were identified. OPERATIVE NOTE: Risks, benefits and alternatives were discussed. Patient consented to the procedure, seen preoperatively. The surgical site was confirmed and marked. He was taken to the operating room and placed in the supine position. General anesthesia was induced without complication. All bony prominences were padded. A single-lumen endotracheal tube was placed. A time-out was performed. A bronchoscopy was performed. There were no bronchial lesions noted. There was some scant secretions noted bilaterally that were suctioned until clear. The scope was withdrawn. He tolerated this well, and was then placed in left lateral decubitus position. His right chest was prepped with Betadine and draped in usual fashion after the previous chest tube was removed. At the location of the planned thoracotomy incision off the tip of the scapula, we placed a 11 mm Vashe trocar. His single-lumen tube was also exchanged for a double-lumen endotracheal tube and confirmed to be in good position. We had good isolation of the lung. We then placed posteriorly within the bounds of what would be a thoracotomy incision a 12 mm trocar, and anteriorly a 5. We had to take down some apical adhesions to the lung that were focal, protecting the lung and obtaining hemostasis. Then using a gold load 45 mm stapler in multiple fires, we resected the apical blebs with good closure of the lung parenchyma. There were no other identified blebs. Then a Bovie scratch pad was introduced, and the parietal pleura was scored in several locations inducing light bleeding to provide mechanical pleurodesis. Through 2 more inferior stab incisions, we placed two 32-Hebrew chest tubes and confirmed positioning. Hemostasis was noted. Irrigation was applied over our staple lines, and the lung was expanded, and we noted no air leaking, with good expansion of all lobes of the lung. The tubes were secured with 0 Ethibond suture. The muscle and fascia were closed with 0 Vicryl in layers and the skin was closed with 4-0 Monocryl. Dermabond was applied. The tubes were placed to Pleur-evac suction. He tolerated it well and was awakened and transferred to recovery. I spoke with family. cc: MD ZULEYMA Ortega
[2018-11-04] MEDS: MORPHINE IV PRN ×7 (01:51→23:12)
[2018-11-04] MEDS: ZOFRAN IV PRN ×6 (02:10→21:00)
[2018-11-04] MEDS: HEPARIN SUBQ SCH ×3 (05:55→20:19)
[2018-11-04] MEDS: PROTONIX PO SCH ×2 (05:55→06:21)
--- NOTE | 2018-11-04 07:34 | GENERAL SURGERY PROGRESS NOTE ---
DATE: 11/04/2018 SUBJECTIVE: Patient seems to be doing okay although he has some shoulder pain. OBJECTIVE: Vital signs: Patient is currently afebrile. His vital signs are stable. He is saturating in the high 90s. General exam: No acute distress. Cardiovascular: Regular rhythm. Lungs: Air leak noted to 1 of the chest tubes with a small air leak. Both had a suction still. Chest x-ray reviewed from yesterday: He did not have obvious pneumothorax yesterday after the chest tubes were placed. ASSESSMENT AND PLAN: A 53-year-old gentleman postoperative day #1 from right-sided VATS with blebectomy with mechanical pleurodesis. #1 postoperative state. At this time, we will keep his chest tubes to suction given the air leak. We will follow up a chest x-ray in the morning. We will advance the patient to a regular diet. We will make sure he has SCDs on. cc: Silvio Lopez MD
--- NOTE | 2018-11-04 07:41 | Diag Imaging Result Doc PS360 ---
EXAM: CHEST-PORTABLE 11/04/2018 HISTORY: follow up pneumothorax TECHNIQUE: AP portable upright at 07 [id number] COMMENT: There are two chest tubes on the right. There is no evidence of appreciable residual pneumothorax. There is atelectasis over the right base. Overall the appearance of the chest has not changed significantly since 11/03/2018. IMPRESSION: Stable chest. Electronically signed by Randell Ashby 11/04/2018 7:39 AM
[2018-11-04] MEDS ORDERED: MORPHINE IV ONE (11:00)
--- NOTE | 2018-11-04 12:15 | PROGRESS NOTE ---
DATE: 11/04/2018 SUBJECTIVE: Mr. Elder is in a lot of discomfort. He has 2 chest tubes in his right chest. The night was pretty rough last night postoperative day 1 from right-sided VATS video-assisted thoracoscopy with blebectomy and mechanical pleurodesis. Chest tube still site at this time, tube is to suction given air leak. We will follow. PHYSICAL EXAMINATION: Lungs: Otherwise lungs are clear. Vital Signs: Temperature is 97.8 degrees pulse 82, respirations 18, blood pressure 110/64. HEENT: Pupils are equal and round. Cardiovascular: Regular rhythm and rate without murmur or S3. Abdomen: Soft. Skin: Warm and dry. URINE OUTPUT: Is 2600 mL. IMAGING: Chest x-ray on 11/04/2018, stable chest. There are 2 chest tubes on the right. There is atelectasis in the right base. cc: Caesar Rosas MD
[2018-11-04] MEDS: DUONEB (A & A) INH PRN (12:26)
[2018-11-04] MEDS ORDERED: FLEXERIL PO PRN (15:14)
[2018-11-05] MEDS: MORPHINE IV PRN ×6 (03:51→23:32)
[2018-11-05] MEDS: ZOFRAN IV PRN ×6 (03:51→23:32)
[2018-11-05] MEDS: PROTONIX PO SCH ×2 (05:26→06:05)
[2018-11-05] MEDS: HEPARIN SUBQ SCH ×4 (05:26→21:12)
--- NOTE | 2018-11-05 06:42 | Diag Imaging Result Doc PS360 ---
EXAM: CHEST-PORTABLE HISTORY: follow up chest tubes TECHNIQUE: Portable chest COMPARISON: 10/27/2018 FINDINGS: No change in the right chest tubes. No definite pneumothorax. No cardiomegaly. No consolidation. No pleural effusions identified. IMPRESSION: Stable chest Electronically signed by Shayan Sr 11/05/2018 6:40 AM
--- NOTE | 2018-11-05 07:28 | GENERAL SURGERY PROGRESS NOTE ---
DATE: 11/05/2018 SUBJECTIVE: Patient seems to be doing okay. His chest x-ray this morning and from yesterday saw no pneumothorax. OBJECTIVE: Vital Signs: The patient is currently afebrile. His vital signs are stable. General Examination: No acute distress. Cardiovascular: Regular rate and rhythm. Lungs: No air leak noted to either chest tube. Both chest tubes are placed to water seal. Abdomen: Soft. ASSESSMENT AND PLAN: A 53-year-old gentleman, currently postoperative day #2 from right-sided video-assisted thorascopic procedure with lobectomy and mechanical pleurodesis. Postoperative state. At this time, he seems to be doing okay. I do not see any obvious air leak today so we will place his chest tubes to water seal. We will continue to monitor him and see how he does. cc: Silvio Lopez MD
--- NOTE | 2018-11-05 13:48 | PROGRESS NOTE ---
DATE: 11/05/2018 SUBJECTIVE: Mr. Elder says he feels better, a little more comfortable. Two chest tubes in his right chest. OBJECTIVE: Vital Signs: Remains afebrile, temperature 98.5 degrees, pulse 77, respirations 20, blood pressure 118/72. HEENT: Pupils are equal and round. Lungs: Clear in all lung hinkle. Cardiovascular: Regular rhythm and rate without murmur or S3. Urine output was 4300 mL. IMAGING: Chest x-ray, portable chest: No change in right chest tubes. No definite pneumothorax. No cardiomegaly. No consolidation. No pleural effusion, so stable. ASSESSMENT AND PLAN: Currently postoperative day 2 from right-sided video-assisted thoracoscopic procedure with lobectomy and mechanical pleurodesis. Doing well. Hopefully, we can stop the tubes soon, and he would be able to go home next week. Continue present orders, and continue present pain control. He is on heparin 5000 units subcutaneously every 8 hours. He is on Flexeril 10 mg by mouth every 12 hours as needed, Protonix 40 mg by mouth daily, and he gets the morphine 4 mg intravenously every 3 hours as needed. There is no recent lab. Will check some lab tomorrow just because of electrolytes and CBC. cc: Caesar Rosas MD
[2018-11-05] MEDS: DUONEB (A & A) INH PRN (15:30)
[2018-11-06] MEDS: MORPHINE IV PRN ×6 (03:13→21:22)
[2018-11-06] MEDS: ZOFRAN IV PRN ×5 (05:52→21:22)
[2018-11-06] MEDS: HEPARIN SUBQ SCH ×3 (05:52→21:22)
[2018-11-06] MEDS: PROTONIX PO SCH ×2 (05:52→06:00)
[2018-11-06 06:28] LABS: BASO# 0.02 X1000 (0.0-0.2); BASO% 0.3 % (0.0-0.8); EOS# 0.47 X1000 (0.0-0.7); EOS% 6.3 % (0.0-10.0); HEMATOCRIT 39.6 % (42.0-52.0); HEMOGLOBIN 13.8 g/dL (14.0-18.0); IMM GRAN# 0.02 X1000 (0.0-0.04); IMM GRAN% 0.3 % (0.0-0.5); LYMPH# 1.48 X1000 (1.2-3.4); MCH 32.5 PG (27-31); MCHC 34.8 g/dL (33-37); MCV 93.4 FL (81-99); MONO# 1.45 X1000 (0.11-0.59); MONO% 19.6 % (1.7-9.3); MPV 9.8 FL (7.4-10.4); NEUT# 3.97 X1000 (1.4-6.5); NEUT% 53.5 % (42.2-75.2); PLT 278 X1000 (130-400); RBC 4.24 XMIL (4.7-6.1); RDW 12.1 % (11.5-14.5); WBC 7.41 X1000 (4.8-10.8)
[2018-11-06 06:56] LABS: AGAP 13; ALB/GLOB RATIO 0.9; ALBUMIN 3.4 g/dL (3.5-5.0); ALKALINE PHOSPHATASE 70 U/L (32-122); BUN 12 mg/dL (8-22); CALCIUM 8.8 mg/dL (8.8-10.2); CHLORIDE 95 mmol/L (98-107); COSMO 273; CREATININE 0.6 mg/dL (0.7-1.2); ESTIMATED GFR > 60; GLUCOSE 115 mg/dL (70-104); GOT 14 U/L (10-34); GPT 29 U/L (10-44); MAGNESIUM 1.9 mg/dL (1.5-2.7); POTASSIUM 4.3 mmol/L (3.5-5.1); SODIUM 136 mmol/L (136-145); TCO2 28 mmol/L (25-35); TOTAL BILIRUBIN 0.55 mg/dL (0.20-1.00); TOTAL PROTEIN 7.2 g/dL (6.3-8.3)
[2018-11-06] MEDS: DUONEB (A & A) INH PRN ×2 (11:15→20:35)
--- NOTE | 2018-11-06 12:43 | Diag Imaging Result Doc PS360 ---
EXAM: CHEST-2 VIEWS HISTORY: S/P Chest Tube Removal X1 TECHNIQUE: Chest two views COMPARISON: 11/05/2018 FINDINGS: Interval removal of the lower right chest tube. There is only a tiny right pneumothorax. No cardiomegaly. No pulmonary edema. No consolidation although there is basilar atelectasis. IMPRESSION: No change following removal of one of the right chest tubes. Electronically signed by Shayan Sr 11/06/2018 12:41 PM
--- NOTE | 2018-11-06 13:21 | GENERAL SURGERY PROGRESS NOTE ---
DATE: 11/06/2018 SUBJECTIVE: Doing well. His chest tubes are water sealed. No fevers. Low-grade tachycardia intermittently but blood pressures have been okay. He is saturating mid 90s on 3 L. OBJECTIVE: General- he is alert. Right chest tubes in place to water seal. Minimal amount of drainage over the weekend. No air leak. I reviewed his labs. I reviewed his x-ray from yesterday. ASSESSMENT AND PLAN: A 53-year-old gentleman status post lobectomy with pleurodesis for persistent air leak and spontaneous pneumothorax. He is doing well. I removed 90 degree tube today. We will get a chest x-ray at noon. We will remove his Saez catheter. cc: Melba Rebolledo MD
--- NOTE | 2018-11-06 16:25 | PROGRESS NOTE ---
DATE: 11/06/2018 SUBJECTIVE: Mr. Elder had one of his chest tubes taken out. He feels much better. He is breathing comfortably. OBJECTIVE: Vital Signs: Temperature 98.0 degrees, pulse 86, respirations 25, blood pressure 111/61. HEENT: Pupils are equal round. Lungs: Clear in all lung hinkle. Cardiovascular: Regular rhythm and rate without murmur or S3. Abdomen: Soft. Skin: Warm and dry. Urine output is 4200 mL. IMAGING: Chest x-ray: No change following removal of one of the right chest tubes, only tiny right pneumothorax. No consolidation, although there is some basilar atelectasis. ASSESSMENT AND PLAN: Status post lobectomy and pleurodesis for persistent leak, spontaneous pneumothorax, doing well. Removed 90 degree tube and 1 tube left. His Saez catheter is out, so hopefully we can remove that soon, doing much better. REVIEW OF HIS ORDERS: Getting morphine as needed for pain, not required very much. He is on heparin subcu 5000 units subcutaneously q.8 hours for deep venous thrombosis prophylaxis. Flexeril 10 mg q.12 p.r.n., Protonix 40 mg a day, and Zofran 4 mg IV q.4 hours p.r.n. nausea. His labs reviewed from today: White count 7410, hematocrit is stable at 39, hemoglobin of 13.8, platelets are 278,000. Sodium 136, potassium 4.3, chloride 95, BUN is 12, creatinine 0.6. cc: Caesar Rosas MD
[2018-11-07] MEDS: ZOFRAN IV PRN ×5 (02:28→21:46)
[2018-11-07] MEDS: MORPHINE IV PRN ×6 (02:28→21:46)
[2018-11-07] MEDS: PROTONIX PO SCH (06:26)
[2018-11-07] MEDS: HEPARIN SUBQ SCH ×3 (06:26→20:21)
--- NOTE | 2018-11-07 08:42 | Diag Imaging Result Doc PS360 ---
EXAM: CHEST-2 VIEWS 11/07/2018 HISTORY: ptx chest tube TECHNIQUE: PA and lateral chest COMMENT: There is a chest tube on the right. There is no evidence of residual pneumothorax. There is some pleural thickening on the right particularly in the apex. There are platelike opacities in the right base consistent with atelectasis. Overall the appearance of the chest has not changed significantly since 11/06/2018. IMPRESSION: Atelectasis. Electronically signed by Randell Ashby 11/07/2018 8:39 AM
--- NOTE | 2018-11-07 12:54 | PROGRESS NOTE ---
DATE: 11/07/2018 SUBJECTIVE: Patient is complaining of some chest pains. OBJECTIVE: Blood pressure is 108/63, heart rate of 82, respiratory rate is 17, temperature 97.8 degrees, 93% on 3 L. Cardiovascular: Regular rate and rhythm. Pulmonary: Bilateral breath sounds clear to auscultation. GI was soft, nontender, nondistended. Bowel sounds are positive. PROBLEM LIST: 1. Spontaneous pneumothorax after a lobectomy and mechanical pleurodesis for a persistent air leak. He had 2 chest tubes, 1 is out. It still looks like there is a bit of an air leak. Right now it is to water-seal and there was a little bit of a leak still. Surgery, Dr. Rebolledo, following. Once we can get the tube out, then hopefully we can progress to getting him out of here. 2. Bullous emphysema, COPD, appears to be relatively well compensated. He is just on p.r.n. medications. DISPOSITION: Just pending his clinical status. We will get another chest x-ray tomorrow and follow. cc: Nino Alvarado MD
--- NOTE | 2018-11-07 14:09 | Diag Imaging Result Doc PS360 ---
EXAM: CHEST-PORTABLE HISTORY: chest tube removed TECHNIQUE: Chest single view COMPARISON: 8:35 AM FINDINGS: Interval removal of the right-sided chest tube. No pneumothorax identified. No other interval change. Electronically signed by Shayan Sr 11/07/2018 2:06 PM
[2018-11-07] MEDS: DUONEB (A & A) INH PRN (15:25)
--- NOTE | 2018-11-07 19:24 | GENERAL SURGERY PROGRESS NOTE ---
DATE: 11/07/2018 SUBJECTIVE: Doing well. No air leak. When his tube was x-rayed this morning, it showed good expansion. A 90-degree tube was made yesterday. OBJECTIVE: No fevers. No tachycardia. Oxygen saturation is low 90s on 3 L. He is alert. No air leak. Chest tube is to water seal. ASSESSMENT AND PLAN: A 53-year-old gentleman with spontaneous pneumothorax, status post lobectomy and pleurodesis. Removed his remaining straight tube today. We will get an x-ray in a couple of hours. Plan for possible home tomorrow. cc: Melba Rebolledo MD
[2018-11-08] MEDS: ZOFRAN IV PRN ×2 (04:55→10:14)
[2018-11-08] MEDS: MORPHINE IV PRN ×2 (04:55→10:14)
[2018-11-08] MEDS: PROTONIX PO SCH (06:19)
[2018-11-08] MEDS: HEPARIN SUBQ SCH (06:20)
--- NOTE | 2018-11-08 06:24 | Diag Imaging Result Doc PS360 ---
CHEST-PORTABLE - 11/08/2018 INDICATION: dyspnea COMPARISON: 11/07/2018 FINDINGS: Stable patchy atelectasis or linear infiltrates in the lung bases bilaterally right greater than left. Stable hyperexpanded lungs. Heart size remains normal. No pneumothorax or pleural effusion. IMPRESSION: No change from prior. Electronically signed by Rod Be 11/08/2018 6:21 AM
[2018-11-08 08:18] VITALS: BP 107/67
--- NOTE | 2018-11-08 14:11 | GENERAL SURGERY PROGRESS NOTE ---
DATE: 11/08/2018 SUBJECTIVE: Doing very well. No shortness of breath. He is off O2. His chest tube was removed. Chest x-ray shows lungs good, well expanded. Dressings are intact. ASSESSMENT/PLAN: Gentleman with spontaneous pneumothorax, status post lobectomy. I reviewed his pathology is benign and I would like to see him in a week with a chest x-ray as an outpatient. I have given him postoperative instructions. Remove his dressings starting tomorrow and reapply the dressings, and call with any issues. cc: Melba Rebolledo MD
--- NOTE | 2018-11-09 11:14 | DISCHARGE SUMMARY ---
ADMISSION DATE: 10/26/2018 DISCHARGE DATE: 11/08/2018 DISCHARGE DIAGNOSES: 1. Spontaneous pneumothorax. 2. Bullous emphysema. 3. Chronic respiratory failure. PROCEDURES: 1. Bilateral thoracostomy, tube placement, video-assisted thoracoscopic right blebectomy, mechanical pleurodesis. 2. Bronchoscopy. CONSULTATIONS: Dr. Rebolledo. HISTORY: Briefly this is a 53-year-old gentleman with COPD, severe tobacco. He has had previous pneumothoraces with rib fractures. He developed a tension pneumothorax and a thoracostomy tube had to be placed. He had hypokalemia. CT scan was obtained on the , which showed a hydropneumothorax with a right chest tube. He had some consolidation in the inferior right lower lobe though. He ended up getting on the 10/28/2019 VATS with removal of an apical bleb and then he had a mechanical pleurodesis per Dr. Rebolledo and he had 2 chest tubes placed. He was a ended up getting 1 tube removed and then the final tube was removed on the and he has not had any residual pneumothorax, so he was felt stable for discharge. DISCHARGE INSTRUCTIONS: 1. I did give him a prescription [place] 1 p.o. q.6h p.r.n. pain. 2. He will need to follow up with Dr. Rebolledo in a week for chest x-ray. DISCHARGE CONDITION: Stable. TIME SPENT: 32 minute discharge. cc: MD Melba Norwood MD
== END 2018-11-08 12:29 | disposition home or self-care (01) | DRG 164 ==
LOC: ED 12:58 → SUATTDRO 15:41 → 2N 15:41 → 4N 10-30 11:31 → 2N 11-03 16:11 → 1N 11-07 17:37
PROVIDERS: ATTEND Internal Medicine
PROC: GE.THRS (2018-11-03 12:40)